=== PATIENT | female | born 2005 | race Hispanic/Latino ===

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

== ENCOUNTER 2025-08-16 12:06 | Emergency (ER) | payer MEDICAID ==
[~2025-08-16] VITALS: Ht 157.5 cm; Wt 54.0 kg
[2025-08-16 13:18] VITALS: BP 137/67; PULSE 74; RESP 16; TEMP 98.2; O2SAT 98
[2025-08-16] MEDS ORDERED: AMOX875T2 PO (14:07)
--- NOTE | 2025-08-16 14:08 | ERN ---
ED Note History of Present Illness Stated Complaint: HEARING LOSS Chief Complaint: Earache Time Seen by MD: 12:07 Time Seen by Midlevel: 12:10 Dictation: 19-year-old female coming in complaining of bilateral ear pain for four days states more so on the left. Patient states she has a flu last week. Also complaining of sore throat. No fever no nausea no vomiting no diarrhea Allergies: Coded Allergies: No Known Drug Allergies (Unverified Allergy, Unknown, 08/21/23) Past Medical History Past Medical History: No Pertinent History Surgical History: None Review of System Dictation Constitutional: Negative for fever,chills, and weight loss Eyes: Negative for injury, pain,redness, and discharge ENT: Bilateral ear pain. Cardiovascular: Negative for chest pain, palpitations, and edema Respiratory: Negative for shortness of breath, cough, and wheezing, Abdomen/GI: Negative for abdominal pain, nausea, vomiting, diarrhea, and constipation Back: Negative for injury and pain : Negative for injury, bleeding and discharge MS/Extremity: Negative for injury and deformity Skin: Negative for rash, and discoloration Neuro: Negative for headache, weakness, numbness, tingling, and seizure Psych: Negative for suicide ideation, homicidal ideation, and hallucinations Review of Systems: was completed Initial Vital Sign VS Vital Signs Date Time Temp Pulse Resp B/P (MAP) Pulse Ox O2 Delivery O2 Flow Rate FiO2 08/16/25 12:07 98.2 74 16 137/67 98 Room Air 08/16/25 13:18 0 21 Physical Exam Dictation General: awake, alert, NAD Head/Face: Normocephalic, atraumatic Eyes: PERRL, EOMI, vision at baseline ENT: TM intact, mild erythema, no drainage, throat shows mild erythema no exudate no tonsillar effacement Neck: Trachea midline, supple, no nuchal rigidity Cardiovascular: RRR, normal S1/S2, No MRGs, no JVD Respiratory: CTAB, no respiratory distress, No rales or wheezes Abdomen: Soft, non-tender, non-distended, normal bowel sounds, no guarding or rebound. Skin: Warm, dry, normal turgor, no rash MS/Extremity: Pulses equal, no cyanosis, neurovascular intact, FROM Neuro: COAx4, GCS 15, strength 5/5, CN 2-12 intact, normal cerebellar exam, normal gait, Psych: Normal behavior, mood, and affect normal Results (Laboratory/Radiology) Laboratory/Radiology Laboratory Tests Test 08/16/25 13:16 Group A Streptococcus Rapid negative (NEGATIVE) Labs Reviewed?: Yes ED Course ED Course Orders Procedure Category Date Status Time Rapid (Group A Strep) LAB 08/16/25 Complete 12:13 Vital Signs Date Time Temp Pulse Resp B/P (MAP) Pulse Ox O2 Delivery O2 Flow Rate FiO2 08/16/25 13:18 98.2 74 16 137/67 98 Room Air* 0 21 08/16/25 12:07 98.2 74 16 137/67 98 Room Air Medical Decision Making MDM MDM: 19-year-old female coming in complaining of bilateral ear pain for four days states more so on the left. Patient states she has a flu last week. Also complaining of sore throat. No fever no nausea no vomiting no diarrhea. Strep is negative. Differential diagnosis: Otitis media, strep, otitis externa Rationale: Tests considered and ordered secondary to shared decision making include: Previous outside records reviewed: Old ER visits. Risk of complication and/or morbidity or mortality of patient management: None Medications-Per medication reconciliation Need for hospitalization: Patient does not meet criteria for hospitalization. Need for emergency major/minor surgery: No There are no social concerns with this patient. Prescription drug management Prescriptions will include symptomatic care Patient's prior external medical records from other ER visits were reviewed by me as indicated. Prior testing and results from previous visits were reviewed. Prior tests were taken into account with medical decision making and resource utilization, independent historian/historians were used to obtain complete medical history. I independently interpreted the test that were performed, results were reviewed by me and considered findings on radiology if ordered. Medical management and examination interpretation discussions were had by me with other qualified healthcare professionals as indicated for the patient's care. DX & DISP Disposition: Discharge Departure Impression: Primary Impression: Otitis media of left ear Condition: Stable Scripts Amoxicillin (Amoxicillin) 875 Mg Tablet 1 TAB PO BID for 5 Days, #10 TAB 0 Refills Prov: ANGELA RIVERA CNP 08/16/25 Additional Instructions: The antibiotics as prescribed for your infection. Follow up with your primary care provider in 1-2 days. Return to the hospital as needed. Referrals: SELF,REFERRAL (PCP) Time of Disposition: 14:08 I have reviewed the case, and I agree with, Diagnosis and Plan ANGELA RIVERA [facility] Aug 16, 2025 14:08
== END 2025-08-16 14:30 | disposition home or self-care (01) ==
LOC: EDH 12:06
DX: H66.92 Otitis media, unspecified, left ear (principal); H92.01 Otalgia, right ear; J02.9 Acute pharyngitis, unspecified
CPT/HCPCS: 87880; 99283